=== PATIENT | female | born 1950 | race Caucasian/White ===

== ENCOUNTER 2021-07-28 11:39 | Outpatient (CLI) | payer MEDICARE, BC | END 2021-07-28 11:40 | disposition home or self-care (01) | LOC: CSHMAMMO 11:39 | PROVIDERS: ATTEND Obstetrics & Gynecology | DX: Z12.31 Encounter for screening mammogram for malignant neoplasm of breast (principal); Z80.3 Family history of malignant neoplasm of breast | CPT/HCPCS: 77063; 77067 ==

== ENCOUNTER 2022-08-10 09:24 | Outpatient (CLI) | payer MEDICARE, BC | END 2022-08-10 09:25 | disposition home or self-care (01) | LOC: CSHMAMMO 09:24 | PROVIDERS: ATTEND Obstetrics & Gynecology | DX: Z12.31 Encounter for screening mammogram for malignant neoplasm of breast (principal); Z80.3 Family history of malignant neoplasm of breast | CPT/HCPCS: 77063; 77067 ==

== ENCOUNTER 2024-07-28 17:12 | Inpatient (IN) | payer MEDICARE ==
[~2024-07-28 17:12] MED LIST: Iopamidol 300 61% 100 ML VIAL FS ONE
[2024-07-28 17:42] LABS: #Basophils 0.02 10x3/uL (0.0-0.2); #Neutrophils 7.66 10x3/uL (1.5-8.4); %Basophils 0.2 % (0.0-2.0); %Eosinophils 2.7 % (0.0-6.0); %Lymphocytes 20.2 % (18.0-47.0); %Neutrophils 67.8 % (40.0-75.0); Hematocrit 33.5 % (34.9-44.5); Hemoglobin 10.4 g/dL (12.0-15.5); Mean Corpuscular Hemoglobin 30.1 pg (27.0-33.0); Mean Corpuscular Volume 97.1 fL (81.6-98.3); Mean Platelet Volume 9.4 fL (7.4-10.4); Platelet Count 371 10x3/uL (150-450); RBC Distribution Width 14.1 % (11.5-14.5); Red Blood Cell (RBC) Count 3.45 10x6/uL (3.90-5.03); White Blood Cell (WBC) Count 11.3 10x3/uL (3.5-10.5)
[2024-07-28 17:53] LABS: PTT 24.5 sec (22.0-33.0); Prothrombin Time 10.4 sec (9.5-12.1)
[2024-07-28 17:58] LABS: ALT (SGPT) 82 U/L (8-55); AST (SGOT) 58 U/L (5-34); Albumin 2.3 g/dL (3.4-4.8); Alkaline Phosphatase 150 U/L (40-110); Anion Gap 14 mmol/L (10-20); BUN (Urea Nitrogen) 22 mg/dL (9.8-20.1); Bilirubin, Total 0.8 mg/dL (0.2-1.2); Calc. Creatinine Clearance 0 mL/min (70-130); Calcium 7.3 mg/dL (7.8-10.44); Carbon Dioxide 14 mmol/L (23-31); Chloride 116 mmol/L (98-107); Estimated GFR 59; Globulin 2.1 g/dL (2.4-3.5); Glucose 116 mg/dL (83-110); Lipase 21 U/L (8-78); Magnesium 1.8 mg/dL (1.6-2.6); Potassium 3.5 mmol/L (3.5-5.1); Protein, Total 4.4 g/dL (5.8-8.1); Sodium 140 mmol/L (136-145)
[2024-07-28 18:00] LABS: Troponin I Less than 0.010 ng/mL (< 0.028)
[2024-07-28] MEDS ORDERED: Cefepime 2 GM VIAL ONE (18:22)
[2024-07-28 18:27] LABS: Bilirubin Neg (Negative); Blood, Urine Negative (Negative); Clarity Clear (Clear); Glucose, Urine (Dipstick) Normal (Negative); Ketone, Urine Negative (Negative); Leukocyte 25 (Negative); Nitrite Negative (Negative); Protein, Urine (Dipstick) 30 mg/dl (Neg-Trace)
[2024-07-28] MEDS ORDERED: Metoclopramide HCl 10 MG (2 mL) VIAL ONE (18:28)
[2024-07-28 18:33] LABS: Bacteria/HPF Rare-Few HPF (None Seen); CAUTI Indications for Culture Pelvic or flank pain; RBC/HPF 0-3 HPF (0-3); WBC/HPF 0-3 HPF (0-3)
[2024-07-28 18:34] LABS: Squamous Epithelial 0-3 HPF (0-3); Transitional Epithelial 0-3 HPF (None Seen)
[2024-07-28] MEDS ORDERED: fentaNYL 50 mcg/mL 1 mL Vial ONE (18:35)
[2024-07-28 18:36] LABS: Urine Culture Reflex No No
[2024-07-28] MEDS ORDERED: Morphine 4 MG/ML VIAL ONE (20:44)
[2024-07-28] MEDS ORDERED: Ondansetron PF 4 MG/2 ML Vial ONE (20:45)
[2024-07-28] MEDS ORDERED: Piperacillin/Tazobactam 3.375 GM in Sodium Chloride 0.9% 100 ML IVPB SCH (22:00)
[2024-07-28 22:23] VITALS: BMI 36.1
[2024-07-28] MEDS: NS 0.9% w/ 20 MEQ KCL 1,000 ML/1,000 ML BAG IV SCH (22:53)
[2024-07-28] MEDS: metroNIDAZOLE 500 MG in Premix 1 BAG IVPB SCH (23:00)
[2024-07-28] MEDS: VANCOMYCIN 1.75 GM/350 ML BAG IVPB SCH (23:46)
[2024-07-28] MEDS: Communication Order-Pharmacy FS ONE (23:47)
[2024-07-29] MEDS ORDERED: Piperacillin/Tazobactam 3.375 GM in Sodium Chloride 0.9% 100 ML IVPB SCH (02:00)
[2024-07-29] MEDS: Lactated Ringer's 1,000 ML IV SCH (03:15)
[2024-07-29 04:38] LABS: MDiff Complete? YES
[2024-07-29 04:39] LABS: Hemoglobin 8.9 g/dL (12.0-15.5); Mean Corpuscular HGB CONC 30.7 g/dL (32.0-36.0); Mean Corpuscular Hemoglobin 29.6 pg (27.0-33.0); Mean Corpuscular Volume 96.3 fL (81.6-98.3); Mean Platelet Volume 9.6 fL (7.4-10.4); Platelet Count 317 10x3/uL (150-450); RBC Distribution Width 14.4 % (11.5-14.5); Red Blood Cell (RBC) Count 3.01 10x6/uL (3.90-5.03); White Blood Cell (WBC) Count 10.1 10x3/uL (3.5-10.5)
[2024-07-29 04:47] LABS: Anion Gap 12 mmol/L (10-20); BUN (Urea Nitrogen) 21 mg/dL (9.8-20.1); Calc. Creatinine Clearance 63 mL/min (70-130); Calcium 8.3 mg/dL (7.8-10.44); Carbon Dioxide 17 mmol/L (23-31); Chloride 114 mmol/L (98-107); Estimated GFR 57; Glucose 132 mg/dL (83-110); Magnesium 1.8 mg/dL (1.6-2.6); Sodium 138 mmol/L (136-145)
[2024-07-29 04:48] LABS: Vancomycin, Random 29.3 ug/mL (See Comment)
[2024-07-29] MEDS: Cefepime 2 GM in Sodium Chloride 0.9% 100 ML IVPB SCH (05:02)
[2024-07-29] MEDS: Magnesium Sulfate/D5W 1 GM in Premix 1 BAG IVPB SCH (05:34)
[2024-07-29 05:49] LABS: Band 16 % (5-11); Lymphocytes 13 % (21-51); Metamyelocyte 1 % (0-0); Monocytes 9 % (0-10); Neutrophil 61 % (42-75)
[2024-07-29 05:51] LABS: Platelet Adequacy Comment Appears Adequate; RBC Morph Comment Within Normal Limits
[2024-07-29] MEDS: metroNIDAZOLE 500 MG in Premix 1 BAG IVPB SCH (06:17)
[2024-07-29] MEDS ORDERED: Loratadine 10 MG TAB PO PRN (07:44)
[2024-07-29] MEDS: Enoxaparin 40 MG (0.4 mL) SYRINGE SC SCH (09:37)
[2024-07-29] MEDS: Cholecalciferol 1,000 UNITS (25 MCG) TAB PO SCH (09:37)
[2024-07-29] MEDS: Acetaminophen 325 MG TAB PO PRN (09:37)
[2024-07-29] MEDS: Sodium Chloride 0.9% 1,000 ML IV SCH (09:37)
[2024-07-29] MEDS ORDERED: Vancomycin 1.25 GM in Sodium Chloride 0.9% 250 ML 300 ML IVPB SCH (10:00)
[2024-07-29] MEDS: Vancomycin 1 GM in Sodium Chloride 0.9% 250 ML 250 ML IVPB SCH (12:48)
[2024-07-29] MEDS: Morphine 2 MG/ML VIAL SLOW IVP PRN (13:35)
[2024-07-29 21:47] LABS: Campy jejuni + coli by PCR Negative (Negative); STEC Shiga Toxin 1+2 Negative (Negative); Salmonella spp. by PCR Negative (Negative); Shigella spp + EIEC by PCR Negative (Negative)
[2024-07-30 03:55] LABS: Hematocrit 25.7 % (34.9-44.5); Mean Corpuscular HGB CONC 31.1 g/dL (32.0-36.0); Mean Corpuscular Hemoglobin 29.6 pg (27.0-33.0); Mean Corpuscular Volume 95.2 fL (81.6-98.3); Mean Platelet Volume 9.1 fL (7.4-10.4); Platelet Count 244 10x3/uL (150-450); RBC Distribution Width 14.5 % (11.5-14.5); White Blood Cell (WBC) Count 6.5 10x3/uL (3.5-10.5)
[2024-07-30 04:10] LABS: Anion Gap 9 mmol/L (10-20); BUN (Urea Nitrogen) 11 mg/dL (9.8-20.1); Calc. Creatinine Clearance 86 mL/min (70-130); Calcium 8.4 mg/dL (7.8-10.44); Carbon Dioxide 17 mmol/L (23-31); Chloride 117 mmol/L (98-107); Estimated GFR 83; Glucose 96 mg/dL (83-110); Potassium 4.1 mmol/L (3.5-5.1); Sodium 139 mmol/L (136-145); Vancomycin, Random 12.3 ug/mL (See Comment)
[2024-07-30] MEDS ORDERED: VANCOMYCIN 1.25 GM/250 ML BAG 1.25 GM in Premix 1 BAG IVPB SCH (09:00)
[2024-07-30] MEDS: Lisinopril 20 MG TAB PO SCH (09:30)
[2024-07-30 13:17] VITALS: BP 130/61; TEMP 99.1
== END 2024-07-30 14:15 | disposition home or self-care (01) | DRG 871 ==
LOC: CSHERS 17:12 → CSHTELE 21:29
PROVIDERS: ADMIT Family Medicine; ATTEND Family Medicine
DX: A41.9 Sepsis, unspecified organism (principal); K55.039 Acute (reversible) ischemia of large intestine, extent unspecified; E87.20 Acidosis, unspecified; I10 Essential (primary) hypertension; R65.20 Severe sepsis without septic shock; E78.5 Hyperlipidemia, unspecified; Z96.651 Presence of right artificial knee joint; Z88.0 Allergy status to penicillin; Z90.710 Acquired absence of both cervix and uterus; Z98.890 Other specified postprocedural states; Z90.49 Acquired absence of other specified parts of digestive tract; E86.9 Volume depletion, unspecified; E88.09 Other disorders of plasma-protein metabolism, not elsewhere classified; D64.9 Anemia, unspecified
CPT/HCPCS: 36415; 51701; 71046; 74177; 80048; 80053; 80202; 81001; 83605; 83690; 83735; 83880; 84145; 84484; 85025; 85027; 85610; 85730; 87040; 87076; 87149; 87324; 87449; 87505; 93005; 94762; J0692; J1650; J2272; J2405; J2765; J3010; J3370; J3475; J3480; J7030; J7050; J7120; Q9967